=== PATIENT | male | born 1985 | race Caucasian/White ===

== ENCOUNTER 2018-10-04 02:39 | Emergency (ER) | payer OTHER ==
[~2018-10-04] VITALS: Ht 180.3 cm; Wt 106.6 kg
[2018-10-04] MEDS ORDERED: NORCO 5-325 TA1 EACH PO (03:52)
[2018-10-04] MEDS ORDERED: CYCLOBENZAPRINE10 MG PO (03:57)
--- OUTSIDE RECORDS SUMMARY | 2018-10-04 05:08 | XMS ---
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 Macy VISIT COUNT (12 MO.) [address] [place] [address] [place] TOTAL 11 NOTE: Visits indicate total known visits. ED/UCC VISIT TRACKING (12 MO.) 10/04/2018 02:40 [facility] [place] TYPE: Emergency COMPLAINT: - L SHOULDER INJURY 09/10/2018 22:03 [facility] [employer] [place] TYPE: Emergency DIAGNOSES: - Left shoulder dislocation - recurrent - Strain of unspecified muscle, fascia and tendon at shoulder and upper arm level, left arm, initial encounter - Shoulder Pain - Subluxation of unspecified parts of left shoulder girdle, initial encounter [facility]20[facility]2018 20:[facility] DIAGNOSES: - Sprain of left rotator cuff capsule, initial encounter - Shoulder Injury - Strain of unspecified muscle, fascia and tendon at shoulder and upper arm level, left arm, initial encounter 08/15/2018 13:27 [facility] DIAGNOSES: - Posterior dislocation of left humerus, initial encounter - Trauma 08/09/2018 17:30 [facility] DIAGNOSES: - Right Foot Pain - Toe Injury - Gout, unspecified - Unspecified dislocation of left shoulder joint, subsequent encounter 07/19/2018 21:05 [facility] [place] TYPE: Emergency DIAGNOSES: - Dislocation - Unspecified dislocation of left shoulder joint, initial encounter 07/15/2018 14:45 [facility] [place] TYPE: Emergency DIAGNOSES: - Sprain of unspecified collateral ligament of right knee, initial encounter - Shoulder Injury - Strain of unspecified muscle, fascia and tendon at shoulder and upper arm level, left arm, initial encounter - Knee Injury 07/03/2018 15:43 [facility] [place] TYPE: Emergency DIAGNOSES: - Unspecified dislocation of left shoulder joint, initial encounter - Shoulder Injury 06/07/2018 10:09 [facility] [place] TYPE: Emergency DIAGNOSES: - Shoulder Pain - L shoulder dislocation - Unspecified sprain of left shoulder joint, initial encounter - Shoulder Injury [facility]18[facility]2018 15:[facility] DIAGNOSES: - Med Eval - Unspecified sprain of left shoulder joint, initial encounter - Unspecified subluxation of unspecified shoulder joint, initial encounter - Shoulder Injury 02/13/2018 19:26 [facility] [place] [facility] DIAGNOSES: - Pain in left shoulder - Shoulder Pain INPATIENT VISIT TRACKING (12 MO.) No inpatient visits to display in this time frame [email or web address]
== END 2018-10-04 04:05 | disposition home or self-care (01) ==
LOC: ED 02:39
DX: M25.512 Pain in left shoulder (principal); F17.200 Nicotine dependence, unspecified, uncomplicated; Z88.0 Allergy status to penicillin; Z88.5 Allergy status to narcotic agent
CPT/HCPCS: 73030; 96361; 96374; 96375; 99283-25; J1170; J2405; J2704; J3010; J3360; J7030